=== PATIENT | male | born 1990 | race Caucasian/White ===

== ENCOUNTER 2023-06-04 03:14 | Emergency (ER) | payer OTHER ==
[~2023-06-04] VITALS: Ht 160 cm; Wt 58.2 kg
[~2023-06-04 03:14] MED LIST: DIVA125T32 PO; LORA10TA7 PO; LURA80TA2 PO; PARO-38 PO
[2023-06-04 03:17] VITALS: TEMP 97.8
[2023-06-04] MEDS ORDERED: ACET-3385 PO (03:26)
[2023-06-04] MEDS ORDERED: BICT1TAB PO (03:26)
[2023-06-04] MEDS ORDERED: OMEP20 PO (03:26)
[2023-06-04] MEDS ORDERED: CIPR500T10 PO (03:26)
[2023-06-04 05:36] LABS: BASOPHILS % (AUTO) 0.2 % (0.0-2.0); EOSINOPHILS % (AUTO) 0.5 % (1.0-6.0); HEMATOCRIT 41.8 % (41-53); HEMOGLOBIN 14.6 g/dL (13.5-17.5); LYMPHOCYTES # (AUTO) 0.9 K/uL (1.0-4.8); LYMPHOCYTES % (AUTO) 11.3 % (22.0-44.0); MEAN CORPUSCULAR HEMOGLOBIN 32.3 pg (26.0-34.0); MEAN CORPUSCULAR VOLUME 92 fL (80-100); MONOCYTES # (AUTO) 0.6 K/uL (0.1-1.0); MONOCYTES % (AUTO) 7.4 % (2.0-9.0); NEUTROPHILS # (AUTO) 6.1 K/uL (1.8-7.7); NEUTROPHILS % (AUTO) 80.6 % (40.0-70.0); PLATELET COUNT (AUTO) 185 K/uL (150-450); RED BLOOD CELL COUNT(AUTO) 4.53 MIL/uL (4.50-5.90); RED CELL DISTRIBUTION WIDTH 12.4 % (11.5-14.5); WHITE BLOOD COUNT (AUTO) 7.6 K/uL (4.5-11.0)
[2023-06-04 05:45] LABS: ANION GAP 4 mmol/L (8-16); CALCIUM, TOTAL 9.2 mg/dL (8.8-10.5); CARBON DIOXIDE 32 mmol/L (22-29); CHLORIDE 102 mmol/L (98-107); CREATININE 0.91 mg/dL (0.60-1.30); GLOMERULAR FILTR. RATE CALC > 60 mL/min (>60); GLUCOSE,RANDOM 99 mg/dL (70-110); POTASSIUM 4.3 mmol/L (3.5-5.1); SODIUM SERUM 138 mmol/L (136-145); UREA NITROGEN, BLOOD 11 mg/dL (7-18)
[2023-06-04 05:50] LABS: ALANINE AMINOTRANSFERASE 40 U/L (12-78); ALBUMIN 3.7 g/dL (3.4-5.0); ALKALINE PHOSPHATASE 66 U/L (46-116); ASPARTATE AMINOTRANSFERASE 29 U/L (15-37); BILIRUBIN,TOTAL 0.3 mg/dL (0.1-1.0); LIPASE 41 U/L (16-77); TOTAL PROTEIN, SERUM 8.2 g/dL (6.4-8.2)
[2023-06-04] MEDS ORDERED: PEG 3350/NA SULF,BICARB,CL/KCL 4000 ML SOLUTION PO ONE (07:00)
[2023-06-04 12:10] VITALS: BP 120/68; PULSE 62; RESP 16
== END 2023-06-04 12:50 | disposition home or self-care (01) ==
LOC: EMS 03:15
DX: K59.00 Constipation, unspecified (principal); R10.13 Epigastric pain; F32.A Depression, unspecified; F20.9 Schizophrenia, unspecified; Z98.890 Other specified postprocedural states
CPT/HCPCS: 74022; 80053; 83690; 85025; 93005; 99285

== ENCOUNTER 2023-11-26 20:33 | Emergency (ER) | payer OTHER ==
[~2023-11-26] VITALS: Ht 160 cm; Wt 70.0 kg
[~2023-11-26 20:33] MED LIST changes: +ACET-3385 PO; +AMOX1TAB16 PO; +BICT1TAB PO; +CHLO473M2 PO; -DIVA125T32 PO; +IBUP-2070 PO; +LORA-999 PO; -LORA10TA7 PO; -LURA80TA2 PO; -PARO-38 PO; +POLY510P31 PO
[2023-11-26 20:46] VITALS: BP 116/72; PULSE 68; RESP 16; TEMP 97.8
[2023-11-26] MEDS: IBUPROFEN 600 MG TABLET PO ONE (22:52)
== END 2023-11-27 00:14 | disposition home or self-care (01) ==
LOC: EMS 20:33
DX: S01.01XA Laceration without foreign body of scalp, initial encounter (principal); F20.9 Schizophrenia, unspecified; F32.A Depression, unspecified; F79 Unspecified intellectual disabilities; X58.XXXA Exposure to other specified factors, initial encounter; Y93.89 Activity, other specified; Y92.89 Other specified places as the place of occurrence of the external cause; Y99.8 Other external cause status
CPT/HCPCS: 12001; 99282; Z7502; Z7610

== ENCOUNTER 2024-03-10 22:22 | Emergency (ER) | payer OTHER ==
[~2024-03-10] VITALS: Ht 160 cm; Wt 58.2 kg
[~2024-03-10 22:22] MED LIST changes: +AMOX-457 PO; -AMOX1TAB16 PO
[2024-03-10 22:38] VITALS: BP 116/83; PULSE 70; RESP 18; TEMP 99.2; O2SAT 98
== END 2024-03-11 02:29 | disposition home or self-care (01) ==
LOC: EMS 22:22
DX: S31.31XA Laceration without foreign body of scrotum and testes, initial encounter (principal); W23.1XXA Caught, crushed, jammed, or pinched between stationary objects, initial encounter; Y93.89 Activity, other specified; Y92.89 Other specified places as the place of occurrence of the external cause; Y99.8 Other external cause status
CPT/HCPCS: 12001; 99282; Z7502

== ENCOUNTER 2024-09-14 11:17 | Emergency (ER) | payer OTHER ==
[~2024-09-14] VITALS: Ht 172.7 cm; Wt 68.2 kg
[~2024-09-14 11:17] MED LIST changes: -LORA-999 PO; +LORA0.5T20 PO
[2024-09-14 11:23] VITALS: TEMP 98
[2024-09-14] MEDS ORDERED: CLON0.1T2 PO (11:26)
[2024-09-14 14:00] VITALS: BP 119/78; PULSE 75; RESP 18; O2SAT 98
[2024-09-14] MEDS ORDERED: BETA60L TP (14:24)
[2024-09-14] MEDS ORDERED: FAMO20 PO (14:24)
[2024-09-14] MEDS: IBUPROFEN 600 MG TABLET PO ONE (14:58)
== END 2024-09-14 15:12 | disposition home or self-care (01) ==
LOC: EMS 11:18
DX: M79.675 Pain in left toe(s) (principal); F20.9 Schizophrenia, unspecified; Z79.899 Other long term (current) drug therapy
CPT/HCPCS: 99283

== ENCOUNTER 2024-11-17 15:13 | Emergency (ER) | payer OTHER ==
[~2024-11-17] VITALS: Ht 162.6 cm; Wt 68.2 kg
[~2024-11-17 15:13] MED LIST changes: -AMOX-457 PO; +BETA60L TP; -CHLO473M2 PO; +CLON0.1T2 PO; +FAMO20 PO; -IBUP-2070 PO; -LORA0.5T20 PO; -POLY510P31 PO
[2024-11-17 15:21] VITALS: TEMP 98.4
[2024-11-17 16:00] VITALS: BP 159/84; PULSE 90; RESP 17; O2SAT 99
[2024-11-17] MEDS ORDERED: CLON0.2T2 PO (16:28)
[2024-11-17] MEDS ORDERED: PARO30TA60 PO (16:28)
[2024-11-17] MEDS ORDERED: DICL100G60 TP (16:28)
[2024-11-17] MEDS: IBUPROFEN 600 MG TABLET PO ONE (16:56)
[2024-11-17] MEDS: ACETAMINOPHEN/CODEINE 300-30 MG TABLET PO ONE (16:57)
[2024-11-17] MEDS: LIDOCAINE 1% 10 ML VIAL SQ ONE (18:44)
[2024-11-17] MEDS: LORazepam 1 MG TABLET PO ONE (18:45)
[2024-11-17] MEDS: CEPHALEXIN MONOHYDRATE 500 MG CAPSULE PO ONE (18:45)
[2024-11-17] MEDS ORDERED: DOXY-354 PO (19:18)
[2024-11-17] MEDS ORDERED: CEPH-558 PO (19:18)
[2024-11-17] MEDS ORDERED: IBUP-1554 PO (19:18)
[2024-11-17] MEDS ORDERED: ACET-66 PO (19:18)
== END 2024-11-17 19:32 | disposition home or self-care (01) ==
LOC: EMS 15:13
DX: L03.012 Cellulitis of left finger (principal); M41.9 Scoliosis, unspecified; F79 Unspecified intellectual disabilities; F32.A Depression, unspecified; F20.9 Schizophrenia, unspecified; Z98.890 Other specified postprocedural states; Z79.899 Other long term (current) drug therapy
CPT/HCPCS: 10060; 99284; J3490

== ENCOUNTER → 2025-04-12 | Emergency (ER) | payer OTHER ==
[~2025-04-12] VITALS: Ht 160 cm; Wt 75.0 kg
[~2025-04-12] MED LIST changes: +ACET-66 PO; -BETA60L TP; +CEPH-558 PO; -CLON0.1T2 PO; +CLON0.2T2 PO; +DICL100G60 TP; +DOXY-354 PO; +HYDR30CR44 RC; +HYDR30SU8 PR; +IBUP-1554 PO; +PARO30TA60 PO
[2025-04-12 19:55] VITALS: BP 127/96; PULSE 74; RESP 19; TEMP 97.9; O2SAT 98
[2025-04-12 21:35] LABS: PLATELET COUNT (AUTO) 201 K/uL (150-450); RED BLOOD CELL COUNT(AUTO) 4.81 MIL/uL (4.50-5.90); RED CELL DISTRIBUTION WIDTH 12.8 % (11.5-14.5); WHITE BLOOD COUNT (AUTO) 8.3 K/uL (4.5-11.0)
[2025-04-12 21:41] LABS: CALCIUM, TOTAL 8.5 mg/dL (8.8-10.5); CREATININE 0.84 mg/dL (0.60-1.30); GLOMERULAR FILTR. RATE CALC > 60 mL/min (>60); GLUCOSE,RANDOM 107 mg/dL (70-110); SODIUM SERUM 142 mmol/L (136-145); UREA NITROGEN, BLOOD 14 mg/dL (7-18)
== END | disposition still patient (30) ==
LOC: EMS 19:53
DX: K64.8 Other hemorrhoids (principal); F20.9 Schizophrenia, unspecified; F32.A Depression, unspecified; Z98.890 Other specified postprocedural states; Z79.899 Other long term (current) drug therapy
CPT/HCPCS: 74018; 80048; 83690; 85025; 99284; 36415-L1; 36415-TC